=== PATIENT | male | born 2000 | race Caucasian/White ===

== ENCOUNTER 2022-12-14 07:21 | Emergency (ER) | payer BC, OTHER ==
[~2022-12-14] VITALS: Ht 182 cm; Wt 162.7 kg
[2022-12-14] MEDS ORDERED: LIDOCAINE 1% INJ 10 ML VIAL ONE (07:32)
[2022-12-14] MEDS ORDERED: TETANUS,DIPTH,PERTUSS P/F (BOOSTRIX) 0.5 ML VIAL IM ONE (07:45)
--- NOTE | 2022-12-14 07:56 | ED Integumentary General ---
"General Chief Complaint: Bite-Animal/Human/Insect Stated Complaint: LT LEG PAIN | POSSIBLE INSECT BITE Nursing Triage Note: PT AMB TO RM 6 PT CO OF SOME TYPE OF POSSIBLE BITE TO L OUTER CALF AREA. PT STATES HAS BEEN THERE FOR A COUPLE DAYS. AREA SWOLLEN, REDDEND, PAINFUL, AND HAS AREA OF LOCALIZED ABCESS. PT RATES PAIN /10. Source: patient Exam Limitations: no limitations History of Present Illness Date Seen by Provider: Dec 14, 2022 Time Seen by Provider: 07:28 Initial Comments Here with left lower leg abscess. States its been there for a few days but has increased in swelling and redness and has obvious pustules in the center that is round and approximately 1.5 cm. He is unsure of the cause. Denies other medical problems including diabetes. He is unsure if tetanus is up-to-date. He lives in [place] and is traveling here on business and will be here through Monday. Denies fever or chills. Denies other upper respiratory symptoms or systemic symptoms. He did dulce the redness which is approximately 10 cm around wound. Does have small secondary site just above and posterior to the larger abscess. The site is red without obvious abscess. Timing/Duration: other (3 days) Severity: moderate Location: extremities (Left lower) Possible Cause: insect bite Associated Symptoms: change in skin texture, edema; No fever; swelling/mass/lum ps Allergies and Home Medications Allergies Coded Allergies: No Known Drug Allergies (Unverified , 12/14/22) Patient Home Medication List Home Medication List Reviewed: Yes Review of Systems Review of Systems Constitutional: No chills, No fever EENTM: no symptoms reported Respiratory: no symptoms reported Cardiovascular: no symptoms reported Gastrointestinal: No nausea, No vomiting Skin: change in color, lesions Past Gjjspmq-Bpcznh-Pkaanf Hx Patient Social History Tobacco Use?: No Use of E-Cig and/or Vaping dev: Yes Substance use?: No Alcohol Use?: No Pt feels they are or have been: No Past Medical History Surgeries: No Respiratory: No Cardiac: No Neurological: No Family Medical History Reviewed and Corrections made Physical Exam Vital Signs Vital Signs - First Documented 12/14/22 07:28 Temp 36.9 Pulse 111 Resp 16 B/P (MAP) 160/94 (116) Pulse Ox 98 Capillary Refill : Less Than 3 Seconds General Appearance: WD/WN, no apparent distress Cardiovascular: regular rate, rhythm, no murmur Respiratory: lungs clear, normal breath sounds Neurologic/Psychiatric: alert, oriented x 3 Skin: warm/dry Skin Problem Location: lower extremities (Left lower) Skin Problem Character: abscess, erythema (10 cm surrounding wound of approximately 1.5 cm pustule) Procedures/Interventions I&D : Site: Left lower extremity lateral aspect mid tibia Blade Size: 11 I & D Procedure: betadine prep, sterile drapes applied, Wound Packing Packing/Drain: Idoform 10/31 Progress Cleaned with Betadine. Anesthetized locally surrounding wound with approximately 8 mL of 1% lidocaine. 1.5 cm incision made across the top of the pustule and wound drained. Cleaned with copious saline and gauze scrub. Packed with half-inch iodoform. Covered with antibiotic ointment and dressing. Tolerated procedure well without complications. Progress/Results/Core Measures Results/Orders Lab Results Laboratory Tests Test 12/14/22 07:49 Range/Units Glucometer 107 70-110 MG/DL My Orders Orders - QUETA DANGELO MD Wound Culture (12/14/22 07:33) Dipht,Pertuss(Acell),Tet Adult (Boostrix (12/14/22 07:45) Medications Given in ED Current Medications Medications Dose Ordered Sig/Meghan Route Start Time Stop Time Status Last Admin Dose Admin Diphtheria/ Tetanus/Acell Pertussis 0.5 ml ONCE ONCE IM 12/14/22 07:45 12/14/22 07:46 DC 12/14/22 07:53 0.5 ML Lidocaine HCl 10 ml STK-MED ONCE .ROUTE 12/14/22 07:32 12/14/22 07:35 DC 12/14/22 07:52 10 ML Vital Signs/I&O 12/14/22 07:28 Temp 36.9 Pulse 111 Resp 16 B/P (MAP) 160/94 (116) Pulse Ox 98 Blood Pressure Mean: 116 Progress Progress Note : Progress Note Seen and evaluated. Patient has obvious abscess that we will need drained. Fingerstick blood sugar obtained which was 107. I did proceed with I&D as noted in procedure note. Patient tolerated this well without complication. We did send outpatient prescription for Bactrim DS twice daily for 10 days. I have asked him to come back on Monday for recheck. We did discuss that this may be spider bite versus follicular abscess. If this is a brown recluse spider bite, wound may take a long time to heal. This was discussed with the patient. He is not from this area. I did discuss that he may need to follow-up with his doctor or surgeon back in his hometown for further evaluation of this wound if it is not healing as he may need further debridement or grafting. Patient verbalized understanding. OTC medicines discussed. Discharged home with return precautions. Patient verbalized understanding of instructions and agreement with plan. Tetanus updated. Departure Impression Primary Impression: Abscess Additional Impression: Spider bite wound Qualified Codes: T63.304A - Toxic effect of unspecified spider venom, undetermined, initial encounter Disposition: HOME, SELF-CARE Condition: Stable Departure-Patient Inst. Decision time for Depature: 07:53 Referrals: JORGE FORBES MD NO,LOCAL PHYSICIAN (PCP) Primary Care Physician Patient Instructions: Abscess Incision and Drainage, Spider Bites Add. Discharge Instructions: All discharge instructions reviewed with patient and/or family. Voiced understanding. Return in 2 days for recheck of wound. Take antibiotics as directed. You may take Tylenol/acetaminophen 1000 mg every 6-8 hours as needed for pain. You may take ibuprofen 600 mg every 8 hours as needed for pain. Return for increasing redness, foul-smelling drainage, red streaks up the leg or other concerns as needed. Wound care to the leg should be performed twice daily. You may gently clean the wound out with mild soap including water. It is okay to shower. Do not soak the wound otherwise in bathtub or swimming pool or similar. Use antibiotic ointment and dressing over the wound, changing that twice daily. If the wick falls out, that is okay. Follow-up with your doctor back in your hometown as this may need further care including debridement or grafting if it i s not healing well. Scripts Sulfamethoxazole/Trimethoprim (Bactrim Ds Tablet) 1 Each Tablet 1 EACH PO BID, #20 TAB 0 Refills Prov: QUETA DANGELO MD 12/14/22 QUETA DANGELO MD Dec 14, 2022 07:56"
[2022-12-14 07:57] VITALS: BP 160/94
[2022-12-14] MEDS ORDERED: SULF1TAB38 PO (08:04)
== END 2022-12-14 08:01 | disposition home or self-care (01) ==
LOC: ER 07:26
DX: L02.416 Cutaneous abscess of left lower limb (principal); T63.301A Toxic effect of unspecified spider venom, accidental (unintentional), initial encounter; F17.290 Nicotine dependence, other tobacco product, uncomplicated; Z23 Encounter for immunization
CPT/HCPCS: 82947; 87070; 87077; 87205; 90715; 99284

== ENCOUNTER 2022-12-16 06:40 | Emergency (ER) | payer BC ==
[~2022-12-16] VITALS: Ht 182 cm; Wt 162.7 kg
[~2022-12-16 06:40] MED LIST: SULF1TAB38 PO
--- NOTE | 2022-12-16 07:07 | ED Suture Removal/Wound Check ---
Suture/Wound Re-check Suture Removal/Wound Recheck : Progress This gentleman presents to the emergency room for a no-charge wound check after having incision and drainage of an abscess on the left lower leg 2 days ago. Wound cultures were collected but results are not available yet. He reports significant improvement in the abscess. There is still erythema radiating around from the abscess site but this is nontender and not warm to the touch. There is a pore-like crater at the center of the abscess about 4 mm in diameter and the wound is oozing serous fluid. There is no purulent drainage. There is no fluctuant fluid collection. He left the packing wick in for about 8 hours after incision and drainage. He denies fever. He is traveling back to [place] today. Initial blood pressure during triage was significantly elevated. This was collected with a wrist cuff. I had him remove his sweatshirt and checked his blood pressure with a long adult cuff on the upper arm. Blood pressure was minimally elevated on recheck. Wound was redressed with sterile gauze. General Appearance: WD/WN, no apparent distress Skin Exam: other (Flattened and cratered abscess on the left lateral lower leg with slight serous drainage. There is surrounding erythema extending to about 10 cm beyond the wound site. Erythema is nontender and cool to touch.) Physical Exam Vital Signs Vital Signs - First Documented 12/16/22 06:48 Temp 36.4 Pulse 91 Resp 20 B/P (MAP) 174/110 Pulse Ox 99 O2 Delivery Room Air Capillary Refill : General Appearance: WD/WN, no apparent distress Skin: other (As above) Departure Impression Primary Impression: Abscess Additional Impression: Visit for wound check Disposition: 01 HOME, SELF-CARE Condition: Stable Departure-Patient Inst. Referrals: NO,LOCAL PHYSICIAN (PCP/Family) Primary Care Physician Patient Instructions: Abscess Incision and Drainage ED Add. Discharge Instructions: Complete the entire course of antibiotics as prescribed. Cover the wound as long as it is draining. Avoid submersion until the wound is closed over. You may shower and allow soapy water to run over the wound. You should have continual gradual improvement in the wound over the next few weeks. If appearance of the wound worsens or if you develop pain, heat at the site, or fever, return to care promptly for further evaluation. A culture of the abscess was collected during the incision and drainage. Results of that culture are not yet available. Feel free to contact the emergency room at the number above on Monday or Monday to review culture results. This will help ensure that the antibiotic you are taking is the most appropriate antibiotic for the bacteria in the abscess. Since you will be traveling, stop every 1-2 hours to get up and walk. This will help prevent swelling, reinfection, and blood clots of your leg. Elevate your foot toward the level of your heart as much as possible until wound is completely healed. Return to care if you have any other worsening of symptoms. All discharge instructions reviewed with patient and/or family. Voiced understanding. RAZ RANDLE MD Dec 16, 2022 07:07
[2022-12-16 07:10] VITALS: BP 147/82
[2022-12-20] MEDS ORDERED: CLIN-144 PO (16:41)
== END 2022-12-16 07:17 | disposition home or self-care (01) ==
LOC: EDUNIT# 06:40 → ER 06:43
DX: T81.41XA Infection following a procedure, superficial incisional surgical site, initial encounter (principal); L02.416 Cutaneous abscess of left lower limb; Z48.01 Encounter for change or removal of surgical wound dressing